=== PATIENT | female | born 1970 | race Caucasian/White ===

== ENCOUNTER 2018-09-22 18:16 | Emergency (ER) | payer OTHER ==
[2018-09-22] MEDS ORDERED: Ketorolac Tromethamine 30 MG/ML VIAL ONE (19:05)
[2018-09-22] MEDS ORDERED: Acetaminophen 500 MG TAB ONE (19:05)
== END 2018-09-22 19:55 | disposition home or self-care (01) ==
LOC: SCSER 18:16
DX: M54.5 Low back pain (principal); E11.9 Type 2 diabetes mellitus without complications; Z79.891 Long term (current) use of opiate analgesic; Z79.84 Long term (current) use of oral hypoglycemic drugs; Z79.899 Other long term (current) drug therapy
CPT/HCPCS: 96372; J1885

== ENCOUNTER 2019-03-06 18:47 | Emergency (ER) | payer OTHER ==
[~2019-03-06 18:47] MED LIST: ISOVUE-370 76%-LOCM 1 ML ONE
[2019-03-06 19:17] LABS: #Basophils 0.1 thou/uL (0.0-0.2); #Eosinphils 0.2 thou/uL (0.0-0.7); #Lymphocytes 2.7 thou/uL (1.20-3.40); #Monocytes 0.6 thou/uL (0.11-0.59); #Neutrophils 5.9 thou/uL (1.40-6.50); %Basophils 0.6 % (0.0-1.0); %Eosinophils 1.7 % (0.0-10.0); %Lymphocytes 28.6 % (21.0-51.0); %Monocytes 6.5 % (0.0-10.0); %Neutrophils 62.6 % (42.0-75.0); Hemoglobin 13.2 g/dL (12.0-16.0); Mean Corpuscular HGB CONC 32.5 g/dL (32.0-36.0); Mean Corpuscular Hemoglobin 29.4 pg (27.0-31.0); Mean Corpuscular Volume 90.2 fL (78.0-98.0); Mean Platelet Volume 7.1 fL (7.4-10.4); Platelet Count 288 thou/uL (130-400); RBC Distribution Width 12.4 % (11.5-14.5); Red Blood Cell (RBC) Count 4.49 mill/uL (4.20-5.40); White Blood Cell (WBC) Count 9.5 thou/uL (4.8-10.8)
[2019-03-06 19:25] LABS: Bilirubin Negative (Negative); Blood, Urine Negative (Negative); Clarity Clear (Clear); Glucose, Urine (Dipstick) Normal (Negative); Leukocyte 25 Leu/uL (Negative); Nitrite Negative (Negative); Protein, Urine (Dipstick) Negative (Neg-Trace); RBC/HPF 0-3 HPF (0-3); Urobilinogen Normal mg/dL (Less than 2); WBC/HPF 0-3 HPF (0-3)
[2019-03-06 19:34] LABS: Bacteria/HPF None Seen HPF (None Seen)
[2019-03-06 19:39] LABS: ALT (SGPT) 21 U/L (8-55); AST (SGOT) 18 U/L (5-34); Albumin 4.2 g/dL (3.5-5.0); Alkaline Phosphatase 121 U/L (40-150); Anion Gap 11 mmol/L (10-20); BUN (Urea Nitrogen) 10 mg/dL (7.0-18.7); Bilirubin, Total 0.4 mg/dL (0.2-1.2); Calc. Creatinine Clearance 0 mL/min (70-130); Calcium 9.6 mg/dL (7.8-10.44); Carbon Dioxide 30 mmol/L (22-29); Chloride 102 mmol/L (98-107); Estimated GFR-MDRD 82; Globulin 3.4 g/dL (2.4-3.5); Glucose 154 mg/dL (70-105); Lipase 31 U/L (8-78); Potassium 4.7 mmol/L (3.5-5.1); Protein, Total 7.6 g/dL (6.0-8.3); Sodium 138 mmol/L (136-145)
[2019-03-06] MEDS ORDERED: Ondansetron PF 4 MG/2 ML Vial ONE (21:20)
[2019-03-06] MEDS ORDERED: Morphine 4 MG/ML VIAL ONE ×2 (21:20→22:50)
--- NOTE | 2019-03-06 22:12 | CT ---
CT ABDOMEN AND PELVIS WITH IV CONTRAST: 03/06/19 HISTORY: Abdominal pain. COMPARISON: 09/15/13. There are postop changes of gastric bypass surgery, hysterectomy and abdominal wall repair. The lung bases are clear. No calcified gallstones are seen. The liver, spleen, pancreas, adrenal glands and kidneys are normal. Fat containing ventral hernia in the lower anterior abdominal wall and fat containing hernia in the lower right paramedian anterior a bdominal wall are again seen. No free air, free fluid or lymphadenopathy is seen in the abdomen or pelvis. There are vascular calcifications without evidence of aneurysmal dilatation of the abdominal aorta. T here are degenerative changes in the spine. There is a small area of fat induration involving the ant erior aspect of the right upper abdomen which may either be due to mesenteritis or early/developing o mental infarction. IMPRESSION: Early/developing omental infarction/epiploic appendagitis versus mesenteritis in the right lower quad rant. POS: ESTEVAN
== END 2019-03-06 23:04 | disposition home or self-care (01) ==
LOC: ERS 18:47
DX: K63.89 Other specified diseases of intestine (principal); E11.40 Type 2 diabetes mellitus with diabetic neuropathy, unspecified; M19.90 Unspecified osteoarthritis, unspecified site; M79.7 Fibromyalgia
CPT/HCPCS: 36415; 74177; 80053; 81003; 81015; 83690; 85025; 96374; 96375; 96376; J2270; J2405

== ENCOUNTER 2019-06-03 18:08 | Emergency (ER) | payer BC | END 2019-06-03 18:30 | disposition left against medical advice (07) | LOC: ERS 18:08 | DX: M54.41 Lumbago with sciatica, right side (principal); E11.9 Type 2 diabetes mellitus without complications; E11.40 Type 2 diabetes mellitus with diabetic neuropathy, unspecified; Z79.899 Other long term (current) drug therapy; Z79.84 Long term (current) use of oral hypoglycemic drugs | CPT/HCPCS: 99283 ==

== ENCOUNTER 2020-02-10 19:44 | Emergency (ER) | payer BC, OTHER ==
[2020-02-10 20:42] LABS: #Eosinphils 0.3 thou/uL (0.0-0.7); #Lymphocytes 2.1 thou/uL (1.20-3.40); #Monocytes 0.5 thou/uL (0.11-0.59); #Neutrophils 3.1 thou/uL (1.40-6.50); %Basophils 0.5 % (0.0-1.0); %Eosinophils 4.2 % (0.0-10.0); %Lymphocytes 34.7 % (21.0-51.0); %Monocytes 9.1 % (0.0-10.0); %Neutrophils 51.5 % (42.0-75.0); Hemoglobin 12.3 g/dL (12.0-16.0); Mean Corpuscular HGB CONC 33.2 g/dL (32.0-36.0); Mean Corpuscular Hemoglobin 31.1 pg (27.0-31.0); Mean Corpuscular Volume 93.6 fL (78.0-98.0); Mean Platelet Volume 7.3 fL (7.4-10.4); Platelet Count 223 thou/uL (130-400); RBC Distribution Width 12.3 % (11.5-14.5); Red Blood Cell (RBC) Count 3.96 mill/uL (4.20-5.40)
[2020-02-10 21:07] LABS: ALT (SGPT) 20 U/L (8-55); AST (SGOT) 25 U/L (5-34); Albumin 3.2 g/dL (3.5-5.0); Alkaline Phosphatase 68 U/L (40-110); Anion Gap 8 mmol/L (10-20); BUN (Urea Nitrogen) 10 mg/dL (9.8-20.1); Bilirubin, Total 0.2 mg/dL (0.2-1.2); Calc. Creatinine Clearance 0 mL/min (70-130); Calcium 8.6 mg/dL (7.8-10.44); Carbon Dioxide 32 mmol/L (22-29); Chloride 108 mmol/L (98-107); Estimated GFR-MDRD 81; Globulin 2.2 g/dL (2.4-3.5); Glucose 155 mg/dL (70-105); Potassium 4.9 mmol/L (3.5-5.1); Protein, Total 5.4 g/dL (6.0-8.3); Sodium 143 mmol/L (136-145)
[2020-02-10] MEDS ORDERED: Fentanyl 100 MCG/2 ML VIAL ONE (21:43)
[2020-02-10 21:49] LABS: Bacteria/HPF None Seen HPF (None Seen); Bilirubin Negative (Negative); Blood, Urine Negative (Negative); Calcium Oxalate Crystals 2+ HPF (None Seen); Clarity Clear (Clear); Glucose, Urine (Dipstick) Normal (Negative); Leukocyte 25 Leu/uL (Negative); Nitrite Negative (Negative); Protein, Urine (Dipstick) 10 mg/dL (Neg-Trace); Squamous Epithelial 0-3 HPF (0-3); WBC/HPF 0-3 HPF (0-3)
--- NOTE | 2020-02-10 23:49 | RAD ---
EXAM: XR Abdomen 1 View/KUB PROVIDED CLINICAL HISTORY: Abdominal pain. COMPARISON: None FINDINGS: Limited visualized lung bases are clear. There is mild elevation right hemidiaphragm. Bowel gas patte rn is nonspecific. Rounded metallic densities overlie the central lower abdomen and upper pelvis likely due to mesh material from prior hernia repair. No suspicious calcifications are seen. No other findings. IMPRESSION: Nonspecific bowel gas pattern.
== END 2020-02-10 22:25 | disposition home or self-care (01) ==
LOC: ERS 19:44
DX: R10.9 Unspecified abdominal pain (principal); E11.40 Type 2 diabetes mellitus with diabetic neuropathy, unspecified; M79.7 Fibromyalgia; M19.90 Unspecified osteoarthritis, unspecified site; F41.9 Anxiety disorder, unspecified
CPT/HCPCS: 36415; 74018; 80053; 81003; 81015; 83690; 85025; 87086; 96372; J3010

== ENCOUNTER 2021-02-01 17:37 | Emergency (ER) | payer OTHER, SELFPAY ==
[2021-02-01] MEDS ORDERED: Ketorolac Tromethamine 30 MG/ML VIAL ONE (19:00)
== END 2021-02-01 19:47 | disposition home or self-care (01) ==
LOC: ERS 17:37
DX: G89.29 Other chronic pain (principal); M54.5 Low back pain
CPT/HCPCS: 99283; J1885

== ENCOUNTER 2021-08-03 12:31 | Outpatient (CLI) | payer OTHER | END 2021-08-03 12:32 | disposition home or self-care (01) | LOC: BICMRI 12:31 | PROVIDERS: ATTEND Orthopaedic Surgery | DX: M50.122 Cervical disc disorder at C5-C6 level with radiculopathy (principal); M54.50 Low back pain, unspecified | CPT/HCPCS: 72141 ==

== ENCOUNTER 2024-02-11 08:36 | Inpatient (IN) | payer OTHER ==
[2024-02-11 09:51] LABS: Bacteria/HPF None Seen HPF (None Seen); Bilirubin Negative (Negative); Blood, Urine Negative (Negative); CAUTI Indications for Culture Pelvic or flank pain; Clarity Clear (Clear); Glucose, Urine (Dipstick) Normal (Negative); Ketone, Urine Negative (Negative); Leukocyte 75 Leu/uL (Negative); Nitrite Negative (Negative); Protein, Urine (Dipstick) 10 mg/dL (Neg-Trace); RBC/HPF 0-3 HPF (0-3); Specific Gravity, Urine 1.025 (1.002-1.036); Squamous Epithelial 0-3 HPF (0-3); Urobilinogen 6 mg/dL (Less than 2)
[2024-02-11 09:54] LABS: Urine Culture Reflex No No
[2024-02-11 09:56] LABS: #Basophils Less than 0.03 10x3/uL (0.0-0.2); %Basophils 0.4 % (0.0-1.0); %Eosinophils 1.7 % (0.0-10.0); %Lymphocytes 19.6 % (21.0-51.0); %Monocytes 8.3 % (0.0-10.0); %Neutrophils 69.8 % (42.0-75.0); Hematocrit 37.6 % (36.0-47.0); Hemoglobin 12.2 g/dL (12.0-16.0); Mean Corpuscular HGB CONC 32.4 g/dL (32.0-36.0); Mean Corpuscular Hemoglobin 31.2 pg (27.0-31.0); Mean Corpuscular Volume 96.2 fL (78.0-98.0); Mean Platelet Volume 10.3 fL (7.4-10.4); Platelet Count 195 10x3/uL (130-400); RBC Distribution Width 12.8 % (11.5-14.5); Red Blood Cell (RBC) Count 3.91 mill/uL (4.20-5.40)
[2024-02-11] MEDS ORDERED: Ondansetron PF 4 MG/2 ML Vial ONE ×2 (10:13→14:21)
[2024-02-11] MEDS ORDERED: Famotidine/PF 20 mg/2ml Vial ONE (10:14)
[2024-02-11] MEDS ORDERED: Ketorolac Tromethamine 30 MG (1 mL) VIAL ONE (10:29)
[2024-02-11 10:32] LABS: Anion Gap 13 mmol/L (10-20); BUN (Urea Nitrogen) 13 mg/dL (9.8-20.1); Calc. Creatinine Clearance 0 mL/min (70-130); Calcium 9.1 mg/dL (7.8-10.44); Carbon Dioxide 25 mmol/L (22-29); Chloride 107 mmol/L (98-107); Estimated GFR 99; Glucose 108 mg/dL (70-105); Potassium 4.9 mmol/L (3.5-5.1); Sodium 140 mmol/L (136-145)
[2024-02-11 10:33] LABS: ALT (SGPT) 34 U/L (8-55); AST (SGOT) 94 U/L (5-34); Albumin 3.4 g/dL (3.5-5.0); Alkaline Phosphatase 109 U/L (40-110); Bilirubin, Direct 0.3 mg/dL (0.1-0.3); Bilirubin, Total 0.6 mg/dL (0.2-1.2); Lipase 21 U/L (8-78); Protein, Total 6.3 g/dL (6.0-8.3)
[2024-02-11 11:14] LABS: Troponin I Less than 0.010 ng/mL (< 0.028)
[2024-02-11] MEDS ORDERED: Ondansetron PF 4 MG/2 ML Vial IVP PRN (13:33)
[2024-02-11] MEDS ORDERED: Acetaminophen 325 MG TAB PO PRN (13:33)
[2024-02-11] MEDS ORDERED: Ondansetron ODT 4 MG TAB SL PRN (13:33)
[2024-02-11] MEDS ORDERED: Morphine 4 MG/ML VIAL ONE (14:21)
[2024-02-11 14:51] VITALS: BMI 28.8
[2024-02-11] MEDS ORDERED: Dextrose 5% in Water 1,000 ML IV PRN (15:37)
[2024-02-11] MEDS ORDERED: Insulin Regular, Human 100 UNIT/ML 10 ML VIAL SC PRN ×2 (15:37)
[2024-02-11] MEDS ORDERED: Dextrose 50% Abboject 50 ML SYRINGE SLOW IVP PRN (15:37)
[2024-02-11] MEDS ORDERED: Glucagon 1 MG/ML KIT IM PRN (15:37)
[2024-02-11] MEDS: Pantoprazole 40 MG VIAL IVP SCH (16:00)
[2024-02-11] MEDS: Sodium Chloride 0.9% 1,000 ML IV SCH (16:00)
[2024-02-11] MEDS: metFORMIN 500 MG TAB PO SCH (20:26)
[2024-02-11] MEDS: Gabapentin 300 MG CAP PO SCH (20:26)
[2024-02-11] MEDS ORDERED: Non-Formulary Item 1 EACH (Pantoprazole Sodium [Protonix] 20 MG Tablet.Dr) PO SCH (21:00)
[2024-02-12 05:54] LABS: #Basophils Less than 0.03 10x3/uL (0.0-0.2); %Basophils 0.5 % (0.0-1.0); %Eosinophils 2.9 % (0.0-10.0); %Lymphocytes 40.5 % (21.0-51.0); %Monocytes 8.8 % (0.0-10.0); %Neutrophils 47.1 % (42.0-75.0); Hematocrit 39.2 % (36.0-47.0); Hemoglobin 12.6 g/dL (12.0-16.0); Mean Corpuscular HGB CONC 32.1 g/dL (32.0-36.0); Mean Corpuscular Hemoglobin 30.3 pg (27.0-31.0); Mean Corpuscular Volume 94.2 fL (78.0-98.0); Mean Platelet Volume 10.7 fL (7.4-10.4); Platelet Count 192 10x3/uL (130-400); RBC Distribution Width 12.9 % (11.5-14.5); Red Blood Cell (RBC) Count 4.16 mill/uL (4.20-5.40)
[2024-02-12 06:55] LABS: Anion Gap 17 mmol/L (10-20); BUN (Urea Nitrogen) 9 mg/dL (9.8-20.1); Calc. Creatinine Clearance 101 mL/min (70-130); Calcium 8.9 mg/dL (7.8-10.44); Carbon Dioxide 20 mmol/L (22-29); Chloride 108 mmol/L (98-107); Estimated GFR 99; Glucose 74 mg/dL (70-105); Potassium 4.1 mmol/L (3.5-5.1); Sodium 141 mmol/L (136-145)
[2024-02-12] MEDS: Pantoprazole 40 MG VIAL IVP SCH (08:48)
[2024-02-12] MEDS: HYDROcodone/Acetaminophen 10/325 mg Tablet PO PRN (11:31)
[2024-02-13 06:10] LABS: #Basophils Less than 0.03 10x3/uL (0.0-0.2); %Basophils 0.5 % (0.0-1.0); %Eosinophils 2.9 % (0.0-10.0); %Lymphocytes 38.9 % (21.0-51.0); %Monocytes 9.5 % (0.0-10.0); Hematocrit 35.5 % (36.0-47.0); Hemoglobin 11.6 g/dL (12.0-16.0); Mean Corpuscular HGB CONC 32.7 g/dL (32.0-36.0); Mean Corpuscular Hemoglobin 31.4 pg (27.0-31.0); Mean Corpuscular Volume 96.2 fL (78.0-98.0); Mean Platelet Volume 10.2 fL (7.4-10.4); Platelet Count 187 10x3/uL (130-400); Red Blood Cell (RBC) Count 3.69 mill/uL (4.20-5.40)
[2024-02-13 06:26] LABS: Anion Gap 12 mmol/L (10-20); BUN (Urea Nitrogen) 6 mg/dL (9.8-20.1); Calc. Creatinine Clearance 109 mL/min (70-130); Calcium 8.8 mg/dL (7.8-10.44); Carbon Dioxide 24 mmol/L (22-29); Chloride 110 mmol/L (98-107); Estimated GFR 103; Glucose 83 mg/dL (70-105); Potassium 3.9 mmol/L (3.5-5.1); Sodium 142 mmol/L (136-145)
[2024-02-13] MEDS ORDERED: Magnevist 469MG/ML 20 ML VIAL ONE (09:33)
[2024-02-14 05:40] LABS: #Basophils Less than 0.03 10x3/uL (0.0-0.2); %Basophils 0.5 % (0.0-1.0); %Eosinophils 2.6 % (0.0-10.0); %Lymphocytes 36.6 % (21.0-51.0); %Monocytes 8.1 % (0.0-10.0); Hematocrit 33.1 % (36.0-47.0); Hemoglobin 10.6 g/dL (12.0-16.0); Mean Corpuscular Hemoglobin 31.2 pg (27.0-31.0); Mean Corpuscular Volume 97.4 fL (78.0-98.0); Mean Platelet Volume 10.3 fL (7.4-10.4); Platelet Count 183 10x3/uL (130-400)
[2024-02-14 06:55] LABS: Anion Gap 11 mmol/L (10-20); BUN (Urea Nitrogen) 8 mg/dL (9.8-20.1); Calc. Creatinine Clearance 110 mL/min (70-130); Calcium 7.8 mg/dL (7.8-10.44); Carbon Dioxide 19 mmol/L (22-29); Chloride 113 mmol/L (98-107); Estimated GFR 104; Glucose 81 mg/dL (70-105); Potassium 4.5 mmol/L (3.5-5.1); Sodium 138 mmol/L (136-145)
[2024-02-14 13:42] LABS: Glucose 79 mg/dL (70-105)
[2024-02-15 05:39] LABS: #Basophils Less than 0.03 10x3/uL (0.0-0.2); %Basophils 0.4 % (0.0-1.0); %Eosinophils 3.1 % (0.0-10.0); %Lymphocytes 41.4 % (21.0-51.0); %Monocytes 8.8 % (0.0-10.0); %Neutrophils 46.1 % (42.0-75.0); Hematocrit 35.1 % (36.0-47.0); Hemoglobin 11.5 g/dL (12.0-16.0); Mean Corpuscular HGB CONC 32.8 g/dL (32.0-36.0); Mean Corpuscular Hemoglobin 31.3 pg (27.0-31.0); Mean Corpuscular Volume 95.6 fL (78.0-98.0); Mean Platelet Volume 10.4 fL (7.4-10.4); Platelet Count 201 10x3/uL (130-400); RBC Distribution Width 12.9 % (11.5-14.5); Red Blood Cell (RBC) Count 3.67 mill/uL (4.20-5.40)
[2024-02-15 05:49] LABS: Anion Gap 9 mmol/L (10-20); BUN (Urea Nitrogen) 6 mg/dL (9.8-20.1); Calc. Creatinine Clearance 114 mL/min (70-130); Calcium 8.9 mg/dL (7.8-10.44); Carbon Dioxide 29 mmol/L (22-29); Chloride 108 mmol/L (98-107); Estimated GFR 104; Glucose 79 mg/dL (70-105); Potassium 4.9 mmol/L (3.5-5.1); Sodium 141 mmol/L (136-145)
[2024-02-15] MEDS ORDERED: PROPOFOL 20 ML ONE ×2 (06:50→08:14)
[2024-02-15] MEDS ORDERED: Lidocaine 2% PF 5 ML VIAL ONE (06:51)
[2024-02-15] MEDS ORDERED: fentaNYL 50 mcg/mL 1 mL Vial ONE (07:48)
[2024-02-15 14:46] LABS: Glucose 135 mg/dL (70-105)
[2024-02-15 17:17] LABS: Glucose 81 mg/dL (70-105)
[2024-02-16] MEDS ORDERED: EPINEPHrine 1 MG/ML VIAL ONE (07:35)
[2024-02-16] MEDS ORDERED: Bupivacaine 0.25% HCL 30 ML VIAL ONE (07:35)
[2024-02-16] MEDS ORDERED: Midazolam HCl 2 mg/2 ml Vial ONE (08:00)
[2024-02-16] MEDS ORDERED: Famotidine/PF 20 mg/2ml Vial ONE (08:00)
[2024-02-16] MEDS ORDERED: Sodium Chloride 0.9% 100 ML ONE (08:05)
[2024-02-16] MEDS ORDERED: CEFAZOLIN 2 GM VIAL ONE (08:05)
[2024-02-16] MEDS ORDERED: Rocuronium Bromide 10 MG/ML (10ML VIAL) ONE (08:07)
[2024-02-16] MEDS ORDERED: Lidocaine 1% PF 5 ML VIAL ONE (08:07)
[2024-02-16] MEDS ORDERED: PROPOFOL 20 ML ONE (08:08)
[2024-02-16] MEDS ORDERED: Ondansetron PF 4 MG/2 ML Vial ONE (08:08)
[2024-02-16] MEDS ORDERED: fentaNYL PF 100 MCG/2 ML SYRINGE ONE (08:08)
[2024-02-16] MEDS ORDERED: PHENYLEPHRINE-NS 100 MCG/ML 10 ML SYRINGE ONE (08:32)
[2024-02-16] MEDS ORDERED: SUGAMMADEX SODIUM 200 MG/2 ML VIAL ONE (08:58)
[2024-02-16] MEDS ORDERED: Ketorolac Tromethamine 30 MG (1 mL) VIAL ONE (09:41)
[2024-02-16] MEDS ORDERED: Promethazine HCl 25 MG/ML VIAL IM PRN (09:42)
[2024-02-16] MEDS ORDERED: Ondansetron HCl/PF 4 MG/2 ML Vial IVP PRN (09:42)
[2024-02-16] MEDS ORDERED: fentaNYL 50 mcg/mL 1 mL Vial ONE ×3 (09:47→10:23)
[2024-02-17 12:56] VITALS: BP 122/80; TEMP 98.2
[2024-02-17] MEDS: Polyethylene Glycol 3350 17 GM Packet PO SCH (12:57)
== END 2024-02-17 14:30 | disposition home or self-care (01) | DRG 419 ==
LOC: ERS 08:36 → T4-B 14:36 → OBSVTOIN 02-12 16:23
PROVIDERS: ADMIT Family Medicine; ATTEND Hospitalist
PROC: 0DJ08ZZ Inspection of Upper Intestinal Tract, Via Natural or Artificial Opening Endoscopic (ICD-10-PCS; 2024-02-15)
PROC: 0FT44ZZ Resection of Gallbladder, Percutaneous Endoscopic Approach (ICD-10-PCS; principal; 2024-02-16)
PROC: 3E033XZ Introduction of Vasopressor into Peripheral Vein, Percutaneous Approach (ICD-10-PCS; 2024-02-16)
DX: K80.00 Calculus of gallbladder with acute cholecystitis without obstruction (principal); E78.5 Hyperlipidemia, unspecified; E11.9 Type 2 diabetes mellitus without complications; M79.7 Fibromyalgia; G89.29 Other chronic pain; K83.8 Other specified diseases of biliary tract; Z98.84 Bariatric surgery status; Z88.8 Allergy status to other drugs, medicaments and biological substances; Z79.899 Other long term (current) drug therapy; Z98.890 Other specified postprocedural states; Z90.710 Acquired absence of both cervix and uterus; Z98.891 History of uterine scar from previous surgery
CPT/HCPCS: 36415; 36416; 74183; 76705; 78227; 80048; 80076; 81001; 83605; 83690; 84484; 85025; 93005; 96361; 96374; 96375; 96376; A9537; A9579; C1889; C9113; J0171; J0665; J1815; J1885; J2001; J2250; J2270; J2405; J2704; J3010; J3490; J7050; S0028

== ENCOUNTER 2024-02-21 08:18 | Emergency (ER) | payer OTHER ==
[2024-02-21] MEDS ORDERED: Morphine 4 MG/ML VIAL ONE (09:34)
[2024-02-21] MEDS ORDERED: Ondansetron PF 4 MG/2 ML Vial ONE (09:35)
[2024-02-21 10:11] LABS: #Basophils Less than 0.03 10x3/uL (0.0-0.2); %Basophils 0.3 % (0.0-1.0); %Lymphocytes 9.8 % (21.0-51.0); %Monocytes 7.3 % (0.0-10.0); %Neutrophils 81.3 % (42.0-75.0); Hematocrit 36.7 % (36.0-47.0); Hemoglobin 12.3 g/dL (12.0-16.0); Mean Corpuscular HGB CONC 33.5 g/dL (32.0-36.0); Mean Corpuscular Hemoglobin 31.1 pg (27.0-31.0); Mean Corpuscular Volume 92.9 fL (78.0-98.0); Mean Platelet Volume 10.3 fL (7.4-10.4); Platelet Count 289 10x3/uL (130-400); RBC Distribution Width 12.6 % (11.5-14.5); Red Blood Cell (RBC) Count 3.95 mill/uL (4.20-5.40)
[2024-02-21] MEDS ORDERED: Ketorolac Tromethamine 30 MG (1 mL) VIAL ONE (10:37)
[2024-02-21 10:43] LABS: ALT (SGPT) 20 U/L (8-55); AST (SGOT) 27 U/L (5-34); Albumin 2.9 g/dL (3.5-5.0); Alkaline Phosphatase 109 U/L (40-110); Anion Gap 14 mmol/L (10-20); BUN (Urea Nitrogen) 7 mg/dL (9.8-20.1); Bilirubin, Total 0.7 mg/dL (0.2-1.2); Calc. Creatinine Clearance 0 mL/min (70-130); Calcium 9.4 mg/dL (7.8-10.44); Carbon Dioxide 25 mmol/L (22-29); Chloride 104 mmol/L (98-107); Estimated GFR 102; Globulin 4.7 g/dL (2.4-3.5); Glucose 107 mg/dL (70-105); Lipase 14 U/L (8-78); Potassium 5.1 mmol/L (3.5-5.1); Protein, Total 7.6 g/dL (6.0-8.3); Sodium 138 mmol/L (136-145)
[2024-02-21] MEDS ORDERED: diphenhydrAMINE 50 MG/ML VIAL ONE (11:11)
[2024-02-21] MEDS ORDERED: Famotidine/PF 20 mg/2ml Vial ONE (11:12)
[2024-02-21 11:29] LABS: Troponin I Less than 0.010 ng/mL (< 0.028)
[2024-02-21 11:51] LABS: Bacteria/HPF None Seen HPF (None Seen); Bilirubin Negative (Negative); Blood, Urine Negative (Negative); CAUTI Indications for Culture Alt mental st,lethar; Clarity Clear (Clear); Glucose, Urine (Dipstick) Normal (Negative); Ketone, Urine 20 mg/dL (Negative); Leukocyte Negative Leu/uL (Negative); Nitrite Negative (Negative); Protein, Urine (Dipstick) Negative (Neg-Trace); RBC/HPF 0-3 HPF (0-3); Specific Gravity, Urine 1.043 (1.002-1.036); Squamous Epithelial 0-3 HPF (0-3); WBC/HPF 0-3 HPF (0-3)
[2024-02-21 11:55] LABS: Influenza A by NAA Not Detected (NotDetected); Influenza B by NAA Not Detected (NotDetected); SARS-CoV-2 NAA Rapid Test Not Detected (NotDetected)
[2024-02-21 12:31] LABS: Urine Culture Reflex No No
== END 2024-02-21 13:38 | disposition home or self-care (01) ==
LOC: ERS 08:18
DX: R10.11 Right upper quadrant pain (principal); E11.40 Type 2 diabetes mellitus with diabetic neuropathy, unspecified; Z79.84 Long term (current) use of oral hypoglycemic drugs; Z79.4 Long term (current) use of insulin; Z79.899 Other long term (current) drug therapy; M19.90 Unspecified osteoarthritis, unspecified site
CPT/HCPCS: 71046; 74177; 80053; 81001; 83605; 83690; 84484; 85025; 93005; J1200; J1885; J2270; J2405; S0028

== ENCOUNTER 2024-06-05 20:15 | Emergency (ER) | payer OTHER | END 2024-06-05 22:39 | disposition home or self-care (01) | LOC: ERS 20:15 | DX: L25.1 Unspecified contact dermatitis due to drugs in contact with skin (principal); E11.40 Type 2 diabetes mellitus with diabetic neuropathy, unspecified; Z79.84 Long term (current) use of oral hypoglycemic drugs | CPT/HCPCS: 99282 ==

== ENCOUNTER 2024-07-07 14:37 | Outpatient (CLI) | payer OTHER | END 2024-07-07 14:38 | disposition home or self-care (01) | LOC: BICRAD 14:37 | PROVIDERS: ATTEND Pain Medicine Interventional Pain Medicine | DX: M47.816 Spondylosis without myelopathy or radiculopathy, lumbar region (principal); M46.1 Sacroiliitis, not elsewhere classified; G89.4 Chronic pain syndrome; M96.1 Postlaminectomy syndrome, not elsewhere classified; M51.369 Other intervertebral disc degeneration, lumbar region without mention of lumbar back pain or lower extremity pain; M25.78 Osteophyte, vertebrae; M16.0 Bilateral primary osteoarthritis of hip; Z98.1 Arthrodesis status | CPT/HCPCS: 72100; 72170 ==

== ENCOUNTER 2024-09-10 18:53 | Emergency (ER) | payer OTHER ==
[2024-09-10] MEDS ORDERED: Acetaminophen 325 MG TAB ONE (19:47)
[2024-09-10 20:12] LABS: #Basophils 0.03 10x3/uL (0.0-0.2); %Basophils 0.6 % (0.0-1.0); %Eosinophils 0.9 % (0.0-10.0); %Monocytes 10.1 % (0.0-10.0); %Neutrophils 57.2 % (42.0-75.0); Hematocrit 35.5 % (36.0-47.0); Mean Corpuscular HGB CONC 33.8 g/dL (32.0-36.0); Mean Corpuscular Hemoglobin 31.4 pg (27.0-31.0); Mean Corpuscular Volume 92.9 fL (78.0-98.0); Mean Platelet Volume 9.1 fL (7.4-10.4); Platelet Count 293 10x3/uL (130-400); RBC Distribution Width 12.9 % (11.5-14.5); Red Blood Cell (RBC) Count 3.82 mill/uL (4.20-5.40)
[2024-09-10 20:33] LABS: ALT (SGPT) 25 U/L (8-55); AST (SGOT) 20 U/L (5-34); Albumin 2.5 g/dL (3.5-5.0); Alkaline Phosphatase 84 U/L (40-110); Anion Gap 8 mmol/L (10-20); BUN (Urea Nitrogen) 19 mg/dL (9.8-20.1); Bilirubin, Total 0.5 mg/dL (0.2-1.2); CK (CPK) 106 U/L (29-168); Calc. Creatinine Clearance 0 mL/min (70-130); Carbon Dioxide 30 mmol/L (22-29); Chloride 103 mmol/L (98-107); Estimated GFR 96; Globulin 2.4 g/dL (2.4-3.5); Glucose 82 mg/dL (70-105); Potassium 4.1 mmol/L (3.5-5.1); Protein, Total 4.9 g/dL (6.0-8.3); Sodium 137 mmol/L (136-145)
== END 2024-09-10 22:14 | disposition home or self-care (01) ==
LOC: ERS 18:53
DX: S32.10XA Unspecified fracture of sacrum, initial encounter for closed fracture (principal); E11.40 Type 2 diabetes mellitus with diabetic neuropathy, unspecified; Z91.81 History of falling; W19.XXXA Unspecified fall, initial encounter
CPT/HCPCS: 36415; 72170; 80053; 82550; 85025; 99283

== ENCOUNTER 2024-10-07 04:21 | Inpatient (IN) | payer OTHER ==
[2024-10-07] MEDS ORDERED: Ondansetron PF 4 MG/2 ML Vial ONE ×3 (05:09→12:15)
[2024-10-07] MEDS ORDERED: Morphine 4 MG/ML VIAL ONE (05:09)
[2024-10-07 05:26] LABS: #Basophils Less than 0.03 10x3/uL (0.0-0.2); #Eosinophils Less than 0.03 10x3/uL (0.0-0.7); %Basophils 0.2 % (0.0-1.0); %Lymphocytes 11.3 % (21.0-51.0); %Monocytes 6.8 % (0.0-10.0); %Neutrophils 81.4 % (42.0-75.0); Hematocrit 40.7 % (36.0-47.0); Hemoglobin 13.3 g/dL (12.0-16.0); Mean Corpuscular HGB CONC 32.7 g/dL (32.0-36.0); Mean Corpuscular Hemoglobin 31.1 pg (27.0-31.0); Mean Corpuscular Volume 95.3 fL (78.0-98.0); Platelet Count 234 10x3/uL (130-400); RBC Distribution Width 13.4 % (11.5-14.5); Red Blood Cell (RBC) Count 4.27 mill/uL (4.20-5.40)
[2024-10-07 05:42] LABS: ALT (SGPT) 41 U/L (Less than 34); AST (SGOT) 53 U/L (11-34); Albumin 2.3 g/dL (3.1-4.5); Alkaline Phosphatase 101 U/L (40-110); Anion Gap 17 mmol/L (10-20); BUN (Urea Nitrogen) 14 mg/dL (9.8-20.1); Bilirubin, Total 0.3 mg/dL (0.3-1.2); Calc. Creatinine Clearance 0 mL/min (70-130); Calcium 7.8 mg/dL (7.8-10.44); Carbon Dioxide 21 mmol/L (22-29); Chloride 103 mmol/L (98-107); Estimated GFR 104; Globulin 3.2 g/dL (2.4-3.5); Glucose 204 mg/dL (70-105); Lipase 11 U/L (8-78); Potassium 4.5 mmol/L (3.5-5.1); Protein, Total 5.5 g/dL (6.0-8.3); Sodium 136 mmol/L (136-145)
[2024-10-07 05:49] LABS: Troponin I 4.639 ng/mL (< 0.028)
[2024-10-07] MEDS ORDERED: Aspirin Chewable 81 MG TAB ONE (05:56)
[2024-10-07] MEDS ORDERED: Acetaminophen 500 MG TAB ONE (06:36)
[2024-10-07 06:44] LABS: Acetaminophen Less than 10 mcg/mL (Less than 10); Alcohol Less than 10.0 mg/dL (Less than 10); Salicylate Less than 8.0 mg/dL (Less than 8.0)
[2024-10-07] MEDS ORDERED: Pantoprazole 40 MG VIAL ONE (07:29)
[2024-10-07] MEDS ORDERED: Acetaminophen 325 MG TAB PO PRN (08:55)
[2024-10-07] MEDS ORDERED: Calcium Carbonate 500 MG ChewTAB PO PRN (08:55)
[2024-10-07] MEDS ORDERED: Acetaminophen 650 MG Suppository PR PRN (08:55)
[2024-10-07] MEDS ORDERED: Nitroglycerin 0.4 MG TAB (25 Tab Bottle) SL PRN ×2 (08:57→14:43)
[2024-10-07] MEDS ORDERED: Dextrose 50% Abboject 50 ML SYRINGE SLOW IVP PRN (09:01)
[2024-10-07] MEDS ORDERED: Glucagon 1 MG/ML KIT IM PRN (09:01)
[2024-10-07] MEDS ORDERED: Dextrose 5% in Water 1,000 ML IV PRN (09:01)
[2024-10-07] MEDS ORDERED: Insulin Regular, Human 100 UNIT/ML 10 ML VIAL SC PRN ×2 (09:01)
[2024-10-07] MEDS: Sodium Chloride 0.9% 1,000 ML IV SCH (09:07)
[2024-10-07] MEDS: Aspirin 325 MG TAB PO SCH (09:07)
[2024-10-07] MEDS: Atorvastatin Calcium 40 MG TAB PO SCH (09:22)
[2024-10-07] MEDS: Oseltamivir 75 MG CAP PO SCH (09:22)
[2024-10-07 09:26] VITALS: BMI 23.2
[2024-10-07] MEDS: Ondansetron PF 4 MG/2 ML Vial IVP PRN (09:30)
[2024-10-07 10:40] LABS: Troponin I 4.266 ng/mL (< 0.028)
[2024-10-07] MEDS ORDERED: Iopamidol 370 76% 100 ML VIAL ONE ×2 (11:24→11:25)
[2024-10-07] MEDS ORDERED: Communication Order-Pharmacy FS SCH (11:30)
[2024-10-07] MEDS: Pantoprazole 40 MG VIAL IVP SCH (11:37)
[2024-10-07] MEDS ORDERED: fentaNYL 50 mcg/mL 1 mL Vial ONE (11:46)
[2024-10-07] MEDS ORDERED: Midazolam HCl 2 mg/2 ml Vial ONE (11:47)
[2024-10-07 14:14] LABS: Critical Call Chem Troponin I RESULT DECREASING; Troponin I 3.923 ng/mL (< 0.028)
[2024-10-07] MEDS ORDERED: Sodium Chloride 0.9% 200 ML IV PRN (14:43)
[2024-10-07] MEDS: FLU (Fluarix Triv) TS24-25(6MOS UP)/PF 45 MCG/0.5 ML Syringe IM ONE (16:45)
[2024-10-07] MEDS ORDERED: Enoxaparin 40 MG (0.4 mL) SYRINGE SC SCH (21:00)
[2024-10-07] MEDS: Zolpidem Tartrate 5 MG TAB PO PRN (21:35)
[2024-10-07] MEDS: Ondansetron ODT 4 MG TAB PO PRN (21:35)
[2024-10-08 05:04] LABS: #Basophils Less than 0.03 10x3/uL (0.0-0.2); #Eosinophils Less than 0.03 10x3/uL (0.0-0.7); %Basophils 0.2 % (0.0-1.0); %Eosinophils 0.2 % (0.0-10.0); %Lymphocytes 19.6 % (21.0-51.0); %Monocytes 5.4 % (0.0-10.0); %Neutrophils 74.3 % (42.0-75.0); Hematocrit 38.1 % (36.0-47.0); Hemoglobin 12.4 g/dL (12.0-16.0); Mean Corpuscular HGB CONC 32.5 g/dL (32.0-36.0); Mean Corpuscular Hemoglobin 31.5 pg (27.0-31.0); Mean Corpuscular Volume 96.7 fL (78.0-98.0); Mean Platelet Volume 9.7 fL (7.4-10.4); Platelet Count 223 10x3/uL (130-400); RBC Distribution Width 13.5 % (11.5-14.5); Red Blood Cell (RBC) Count 3.94 mill/uL (4.20-5.40)
[2024-10-08 05:43] LABS: Anion Gap 12 mmol/L (10-20); BUN (Urea Nitrogen) 9 mg/dL (9.8-20.1); Calc. Creatinine Clearance 98 mL/min (70-130); Calcium 7.8 mg/dL (7.8-10.44); Carbon Dioxide 23 mmol/L (22-29); Cardiac Risk 2.7 (Less than 4.5); Chloride 109 mmol/L (98-107); Cholesterol 109 mg/dl (< 200 Desired); Estimated GFR 106; Glucose 100 mg/dL (70-105); HDL Cholesterol 40 mg/dL (>60 Neg Risk); LDL Cholesterol, Calculated 57 mg/dL; Potassium 4.5 mmol/L (3.5-5.1); Sodium 139 mmol/L (136-145); Triglycerides 58 mg/dL (Less than 150)
[2024-10-08] MEDS: Acetaminophen/Codeine 30-300mg Tablet PO PRN ×2 (05:55→16:15)
[2024-10-08] MEDS ORDERED: Lisinopril 5 MG TAB PO SCH (09:00)
[2024-10-08] MEDS: Empagliflozin 10 MG TAB PO SCH (09:08)
[2024-10-08] MEDS: Aspirin Chewable 81 MG TAB PO SCH (09:08)
[2024-10-08] MEDS: Carvedilol 3.125 MG TAB PO SCH (09:08)
[2024-10-08] MEDS: Pantoprazole 40 MG VIAL IVP SCH (09:10)
[2024-10-08] MEDS: Albumin 25% 25 GM (100 mL) BOT IVPB SCH (22:07)
[2024-10-09] MEDS: Carvedilol 3.125 MG TAB PO SCH (10:29)
[2024-10-09] MEDS: Lisinopril 2.5 MG TAB PO SCH (23:06)
[2024-10-10 09:49] VITALS: TEMP 98.1
[2024-10-10] MEDS: Pantoprazole 40 MG DR.TAB PO SCH (10:05)
[2024-10-10] MEDS: Lisinopril 2.5 MG TAB PO SCH (10:05)
[2024-10-10 11:43] VITALS: BP 104/65
== END 2024-10-10 14:00 | disposition home or self-care (01) | DRG 866 ==
LOC: ERS 04:21 → 2NO 07:00
PROVIDERS: ADMIT Internal Medicine; ATTEND Internal Medicine
PROC: B24BZZZ Ultrasonography of Heart with Aorta (ICD-10-PCS; principal; 2024-10-07)
PROC: 4A023N7 Measurement of Cardiac Sampling and Pressure, Left Heart, Percutaneous Approach (ICD-10-PCS; 2024-10-07)
PROC: B2101ZZ Fluoroscopy of Single Coronary Artery using Low Osmolar Contrast (ICD-10-PCS; 2024-10-07)
DX: J10.82 Influenza due to other identified influenza virus with myocarditis (principal); I42.9 Cardiomyopathy, unspecified; I51.81 Takotsubo syndrome; I50.9 Heart failure, unspecified; I10 Essential (primary) hypertension; E78.5 Hyperlipidemia, unspecified; M79.7 Fibromyalgia; E11.42 Type 2 diabetes mellitus with diabetic polyneuropathy; R74.01 Elevation of levels of liver transaminase levels; Z88.8 Allergy status to other drugs, medicaments and biological substances; Z90.79 Acquired absence of other genital organ(s); Z98.890 Other specified postprocedural states; Z79.84 Long term (current) use of oral hypoglycemic drugs; Z79.899 Other long term (current) drug therapy
CPT/HCPCS: 36415; 36416; 71045; 74177; 80048; 80053; 80061; 80307; 82140; 82550; 83690; 84484; 85025; 87428; 93005; 93010; 93306; 93458; 93798; 94760; 96374; 96375; 97139; 99152; C1769; C1887; J2250; J2270; J2405; J2470; J3010; J7030; P9047; Q0162; Q9967

== ENCOUNTER 2025-04-30 15:26 | Outpatient (CLI) | payer OTHER | END 2025-04-30 15:27 | disposition home or self-care (01) | LOC: BICMAMMO 15:26 | PROVIDERS: ATTEND Family Medicine | DX: Z12.31 Encounter for screening mammogram for malignant neoplasm of breast (principal) | CPT/HCPCS: 77063; 77067 ==